=== PATIENT | female | born 1980 | race Caucasian/White ===

== ENCOUNTER 2018-10-02 08:03 | Emergency (ER) | payer SELFPAY ==
--- NOTE | 2018-10-02 08:39 | RAD ---
PA AND LATERAL VIEWS CHEST: Date: 10/02/18 HISTORY: Cough, body aches, fever. FINDINGS: Comparison made with exam of 06/17/11. The heart size is normal. The lungs are expanded without focal areas of consolidation, pneumothoraces , or pleural effusions. There are degenerative changes in the spine. IMPRESSION: No radiographic evidence of acute cardiopulmonary process. POS: C
== END 2018-10-02 09:07 | disposition home or self-care (01) ==
LOC: ERS 08:03
DX: J20.9 Acute bronchitis, unspecified (principal); J45.909 Unspecified asthma, uncomplicated; F17.210 Nicotine dependence, cigarettes, uncomplicated; Z79.899 Other long term (current) drug therapy
CPT/HCPCS: 71046; 87804; J7620

== ENCOUNTER 2018-11-01 22:26 | Emergency (ER) | payer BC, SELFPAY ==
[2018-11-01] MEDS ORDERED: Acetaminophen 500 MG TAB ONE (22:44)
[2018-11-01] MEDS ORDERED: Dexamethasone 10 MG/ML VIAL ONE (22:44)
== END 2018-11-01 23:16 | disposition home or self-care (01) ==
LOC: ERS 22:26
DX: J02.9 Acute pharyngitis, unspecified (principal); J45.901 Unspecified asthma with (acute) exacerbation; F17.210 Nicotine dependence, cigarettes, uncomplicated
CPT/HCPCS: 87081; 87430; 87804; 96372; J1100; J7620